=== PATIENT | male | born 1965 | race Caucasian/White ===

== ENCOUNTER 2023-02-24 01:05 | Day surgery (SDC) | payer BC, SELFPAY ==
[2023-02-17 09:05] VITALS: BMI 35.4
[2023-02-24 10:11] VITALS: BP 141/96; PULSE 77; RESP 18; TEMP 36.3; O2SAT 98
[2023-02-24] MEDS: LACTATED RINGERS 1,000 ML 150 ML IV CONT (10:20)
--- NOTE | 2023-02-24 10:39 | PM.HPGS ---
History of Present Illness History of Present Illness Consent: Risks, benefits, and alternatives have been discussed and questions answered. Patient agrees to proceed with procedure. Chief complaint: hx colon polyps Narrative: Jose Ambriz is a 57 year old male Presents for screening colonoscopy. Patient was found to have an adenomatous colon polyp the time previous colonoscopy 5 years. Additionally patient's sister was identified as having colon polyps. Patient reports his that his current weight appetite and bowel movements are normal. Patient denies abdominal pain. He has had no bleeding. Family history noncontributory. Review of Systems Review of Systems: Review of systems noncontributory. [facility] Past Medical History Medical History Encounter for screening for malignant neoplasm of prostate Factor V deficiency Family history of factor V Leiden mutation GERD (gastroesophageal reflux disease) Pain of right clavicle Screening for colon cancer Seasonal allergies Surgical History Surgical History H/O colonoscopy 06/2017 repeat 5 years H/O vasectomy Family History Family History Mother Lung cancer Father Lung cancer Social History Social History Smoking status: Never smoker Alcohol intake: current Drinks per week: 5 Alcohol use details: BEERS Substance use: never Substance use type: does not use Living arrangements: with family Occupation/Education: occupation 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 Spiritual care concerns: No Meds Home Medications and Allergies Home Medications Medication Instructions Recorded Confirmed Type sildenafil 25 mg tablet 25 mg PO DAILY PRN Erectile 02/24/22 02/17/23 History Dysfunction pantoprazole 40 mg tablet,delayed 40 mg PO QAM #90 tabs 04/08/22 04/08/22 Rx release (Protonix) lansoprazole 15 mg capsule,delayed 15 mg PO DAILY PRN Acid Reflux 02/17/23 02/17/23 History release (Prevacid 24Hr) omeprazole 20 mg tablet,delayed 20 mg PO DAILY PRN Acid Reflux 02/17/23 02/17/23 History release Allergies Allergy/AdvReac Type Severity Reaction Status Date / Time lactose AdvReac Intermediate Gastrointestinal Verified 02/24/23 10:10 Upset Vital Signs Vital Signs - 24 hr 02/24/23 10:11 Temperature 97.3 F L Pulse Rate 77 Respiratory Rate 18 Blood Pressure 141/96 H Pulse Oximetry 98 Oxygen Delivery Room Air Exam Narrative: Physical exam reveals patient to be alert. Vital signs stable. HEENT exam is unremarkable. Patient is anicteric. Lungs are clear to auscultation and to percussion. Heart is without murmur or extra sounds. Abdomen bowel sounds are present soft nontender with no organomegaly. Digital external rectal exam normal. Assessment and Plan Assessment and plan (1) History of colon polyps: Code(s): Z86.010 - Personal history of colonic polyps Status: Acute Assessment and Plan: Patient had adenomatous colon polyp removed from the colon 2017. Plan for surveillance colonoscopy at 5 year intervals. (2) Family history of colonic polyps: Code(s): Z83.719 - Family history of colon polyps, unspecified Status: Acute Assessment and Plan: Patient's sister has also had colon polyps. Plan for surveillance colonoscopy at 5 year intervals.
--- NOTE | 2023-02-24 11:06 | WPDANESEPPF ---
Anes - Initial Pre Proc Eval Procedure: Operation Date: 02/24/23 11:30 Proposed Procedures p Colonoscopy - Alejandro Olivera MD Date/Time: 02/24/23 11:06 Surgeon: Alejandro Olivera MD Pre Op Diagnosis: hx colon polyps Patient Data Age: 57 Gender: M Height: 1.75 m Weight: 106.8 kg Last Vital Signs Temp 97.3 F L 02/24/23 10:11 Pulse 77 02/24/23 10:11 Resp 18 02/24/23 10:11 BP 141/96 H 02/24/23 10:11 Pulse Ox 98 02/24/23 10:11 O2 Del Method Room Air 02/24/23 10:11 Allergies Allergy/AdvReac Type Severity Reaction Status Date / Time lactose AdvReac Intermediate Gastrointestinal Verified 02/24/23 10:10 Upset Home Medications Medication Instructions Recorded Confirmed Type sildenafil 25 mg tablet 25 mg PO DAILY PRN Erectile 02/24/22 02/17/23 History Dysfunction pantoprazole 40 mg tablet,delayed 40 mg PO QAM #90 tabs 04/08/22 04/08/22 Rx release (Protonix) lansoprazole 15 mg capsule,delayed 15 mg PO DAILY PRN Acid Reflux 02/17/23 02/17/23 History release (Prevacid 24Hr) omeprazole 20 mg tablet,delayed 20 mg PO DAILY PRN Acid Reflux 02/17/23 02/17/23 History release Patient hx anesthesia problems: none Family hx anesthesia problems: none Results Review: All pre-operative results and documents have been reviewed as part of the pre-operative evaluation. [facility] Past Medical History Medical History Encounter for screening for malignant neoplasm of prostate Factor V deficiency Family history of factor V Leiden mutation GERD (gastroesophageal reflux disease) Pain of right clavicle Screening for colon cancer Seasonal allergies Surgical History Surgical History H/O colonoscopy 06/2017 repeat 5 years H/O vasectomy Family History Family History Mother Lung cancer Father Lung cancer Social History Social History Smoking status: Never smoker Alcohol intake: current Drinks per week: 5 Alcohol use details: BEERS Substance use: never Substance use type: does not use Living arrangements: with family Occupation/Education: occupation 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 Informed Consent: The patient's anesthetic plan and its attendant risks and benefits were discussed with the patient/family/POA. Questions were solicited and answers provided to the satisfaction of the patient/family/POA.
[2023-02-24] MEDS: SIMETHICONE ORAL SUSPENSION 20 MG/0.3 ML 30 ML BOTTLE 0.6 ML IRRIGATION (11:23)
[2023-02-24 11:37] VITALS: BP 124/91; PULSE 88; RESP 18; O2SAT 98
[2023-02-24 11:47] VITALS: BP 139/96; PULSE 70; RESP 15; O2SAT 99
[2023-02-24 11:57] VITALS: BP 137/101; PULSE 66; RESP 24; O2SAT 99
== END 2023-02-24 12:00 | disposition home or self-care (01) ==
PROVIDERS: PCP Family Medicine; Visit Provider Internal Medicine Gastroenterology
PROC: 0DJD8ZZ Inspection of Lower Intestinal Tract, Via Natural or Artificial Opening Endoscopic (ICD-10-PCS; CPT 45378; principal; 2023-02-24 11:30)
DX: Z12.11 Encounter for screening for malignant neoplasm of colon (principal); K57.30 Diverticulosis of large intestine without perforation or abscess without bleeding; K64.8 Other hemorrhoids; Z86.010 Personal history of colon polyps; Z83.719 Family history of colon polyps, unspecified; K21.9 Gastro-esophageal reflux disease without esophagitis; D68.51 Activated protein C resistance; E66.9 Obesity, unspecified; Z68.34 Body mass index [BMI] 34.0-34.9, adult
CPT/HCPCS: 45378; J2704; J7120